=== PATIENT | female | born 1965 | race Asian ===

== ENCOUNTER 2018-07-18 14:20 | Inpatient (IN) | payer BC ==
[2018-07-18] MEDS ORDERED: POLYETHYLENE GLYCOL 3350 17 GM PKT PO PRN (17:18)
[2018-07-18] MEDS ORDERED: BISACODYL 10 MG SUPP PR PRN (17:18)
[2018-07-18] MEDS ORDERED: ACETAMINOPHEN 325 MG TAB PO PRN (17:18)
[2018-07-18] MEDS: CEPACOL LOZENGE PO PRN (20:10)
[2018-07-18] MEDS: hydrALAZINE 10 MG TAB PO SCH (20:11)
[2018-07-18] MEDS: traZODone 50 MG TAB PO SCH (21:15)
[2018-07-18] MEDS: ATORVASTATIN CALCIUM 40 MG TAB PO SCH (21:15)
[2018-07-19] MEDS: LEVOTHYROXINE 75 MCG TAB PO SCH (05:57)
[2018-07-19] MEDS: CHOLECALCIFEROL VIT D3 1,000 UNITS TAB PO SCH (08:24)
[2018-07-19] MEDS: CLOPIDOGREL BISULFATE 75 MG TAB PO SCH (08:25)
[2018-07-19] MEDS: ESCITALOPRAM OXALATE 10 MG TAB PO SCH (08:25)
[2018-07-19] MEDS: SENNOSIDES/DOCUSATE SODIUM TAB PO SCH (08:25)
[2018-07-19] MEDS: hydrALAZINE 10 MG TAB PO SCH ×3 (08:25→21:23)
[2018-07-19] MEDS: ASPIRIN EC 81 MG TAB PO SCH (08:26)
[2018-07-19] MEDS ORDERED: ENOXAPARIN 40 MG/0.4 ML SYR SC SCH (09:00)
[2018-07-19] MEDS: traZODone 50 MG TAB PO SCH (21:23)
[2018-07-19] MEDS: ATORVASTATIN CALCIUM 40 MG TAB PO SCH (21:23)
[2018-07-20] MEDS: LEVOTHYROXINE 75 MCG TAB PO SCH (05:50)
[2018-07-20] MEDS: CHOLECALCIFEROL VIT D3 1,000 UNITS TAB PO SCH (08:57)
[2018-07-20] MEDS: ESCITALOPRAM OXALATE 10 MG TAB PO SCH (08:57)
[2018-07-20] MEDS: hydrALAZINE 10 MG TAB PO SCH ×3 (08:58→21:30)
[2018-07-20] MEDS: CLOPIDOGREL BISULFATE 75 MG TAB PO SCH (08:58)
[2018-07-20] MEDS: ASPIRIN EC 81 MG TAB PO SCH (08:58)
[2018-07-20] MEDS: SENNOSIDES/DOCUSATE SODIUM TAB PO SCH (08:58)
[2018-07-20] MEDS: ATORVASTATIN CALCIUM 40 MG TAB PO SCH (21:30)
[2018-07-20] MEDS: traZODone 50 MG TAB PO SCH (22:14)
[2018-07-21] MEDS: LEVOTHYROXINE 75 MCG TAB PO SCH (05:58)
[2018-07-21] MEDS: ASPIRIN EC 81 MG TAB PO SCH (08:44)
[2018-07-21] MEDS: CLOPIDOGREL BISULFATE 75 MG TAB PO SCH (08:45)
[2018-07-21] MEDS: CHOLECALCIFEROL VIT D3 1,000 UNITS TAB PO SCH (08:45)
[2018-07-21] MEDS: hydrALAZINE 10 MG TAB PO SCH ×3 (08:45→21:52)
[2018-07-21] MEDS: ESCITALOPRAM OXALATE 10 MG TAB PO SCH (08:45)
[2018-07-21] MEDS: SENNOSIDES/DOCUSATE SODIUM TAB PO SCH (08:46)
[2018-07-21] MEDS: traZODone 50 MG TAB PO SCH (21:58)
[2018-07-21] MEDS: ATORVASTATIN CALCIUM 40 MG TAB PO SCH (21:58)
[2018-07-22] MEDS: LEVOTHYROXINE 75 MCG TAB PO SCH (05:00)
[2018-07-22] MEDS: CLOPIDOGREL BISULFATE 75 MG TAB PO SCH (09:06)
[2018-07-22] MEDS: ESCITALOPRAM OXALATE 10 MG TAB PO SCH (09:06)
[2018-07-22] MEDS: CHOLECALCIFEROL VIT D3 1,000 UNITS TAB PO SCH (09:07)
[2018-07-22] MEDS: ASPIRIN EC 81 MG TAB PO SCH (09:07)
[2018-07-22] MEDS: hydrALAZINE 10 MG TAB PO SCH ×3 (09:07→21:22)
[2018-07-22] MEDS: SENNOSIDES/DOCUSATE SODIUM TAB PO SCH (09:07)
[2018-07-22] MEDS: MELATONIN 3 MG TAB PO SCH (21:22)
[2018-07-22] MEDS: ATORVASTATIN CALCIUM 40 MG TAB PO SCH (21:22)
[2018-07-23] MEDS: LEVOTHYROXINE 75 MCG TAB PO SCH (05:55)
[2018-07-23] MEDS: CHOLECALCIFEROL VIT D3 1,000 UNITS TAB PO SCH (08:46)
[2018-07-23] MEDS: ASPIRIN EC 81 MG TAB PO SCH (08:46)
[2018-07-23] MEDS: CLOPIDOGREL BISULFATE 75 MG TAB PO SCH (08:47)
[2018-07-23] MEDS: ESCITALOPRAM OXALATE 10 MG TAB PO SCH (08:47)
[2018-07-23] MEDS: SENNOSIDES/DOCUSATE SODIUM TAB PO SCH (08:48)
[2018-07-23] MEDS: hydrALAZINE 10 MG TAB PO SCH ×3 (08:48→21:25)
[2018-07-23] MEDS: MELATONIN 3 MG TAB PO SCH (21:26)
[2018-07-23] MEDS: ATORVASTATIN CALCIUM 40 MG TAB PO SCH (21:26)
[2018-07-24] MEDS: LEVOTHYROXINE 75 MCG TAB PO SCH (06:05)
[2018-07-24] MEDS: CHOLECALCIFEROL VIT D3 1,000 UNITS TAB PO SCH (08:54)
[2018-07-24] MEDS: ASPIRIN EC 81 MG TAB PO SCH (08:54)
[2018-07-24] MEDS: ESCITALOPRAM OXALATE 10 MG TAB PO SCH (08:55)
[2018-07-24] MEDS: SENNOSIDES/DOCUSATE SODIUM TAB PO SCH (08:55)
[2018-07-24] MEDS: hydrALAZINE 10 MG TAB PO SCH ×3 (08:55→21:45)
[2018-07-24] MEDS: CLOPIDOGREL BISULFATE 75 MG TAB PO SCH (08:55)
[2018-07-24] MEDS: amLODIPine BESYLATE 5 MG TAB PO SCH (08:58)
[2018-07-24] MEDS: ATORVASTATIN CALCIUM 40 MG TAB PO SCH (21:44)
[2018-07-24] MEDS: MELATONIN 3 MG TAB PO SCH (21:45)
[2018-07-25] MEDS: LEVOTHYROXINE 75 MCG TAB PO SCH (04:57)
[2018-07-25] MEDS: ASPIRIN EC 81 MG TAB PO SCH (08:57)
[2018-07-25] MEDS: amLODIPine BESYLATE 5 MG TAB PO SCH (08:57)
[2018-07-25] MEDS: CLOPIDOGREL BISULFATE 75 MG TAB PO SCH (08:57)
[2018-07-25] MEDS: CHOLECALCIFEROL VIT D3 1,000 UNITS TAB PO SCH (08:58)
[2018-07-25] MEDS: ESCITALOPRAM OXALATE 10 MG TAB PO SCH (08:58)
[2018-07-25] MEDS: hydrALAZINE 10 MG TAB PO SCH ×3 (08:58→21:03)
[2018-07-25] MEDS: SENNOSIDES/DOCUSATE SODIUM TAB PO SCH (08:58)
[2018-07-25] MEDS: ATORVASTATIN CALCIUM 40 MG TAB PO SCH (21:03)
[2018-07-25] MEDS: MELATONIN 3 MG TAB PO SCH (21:03)
[2018-07-26] MEDS: LEVOTHYROXINE 75 MCG TAB PO SCH (05:38)
[2018-07-26] MEDS: amLODIPine BESYLATE 5 MG TAB PO SCH (08:43)
[2018-07-26] MEDS: ASPIRIN EC 81 MG TAB PO SCH (08:43)
[2018-07-26] MEDS: ESCITALOPRAM OXALATE 10 MG TAB PO SCH (08:43)
[2018-07-26] MEDS: CHOLECALCIFEROL VIT D3 1,000 UNITS TAB PO SCH (08:43)
[2018-07-26] MEDS: CLOPIDOGREL BISULFATE 75 MG TAB PO SCH (08:43)
[2018-07-26] MEDS: hydrALAZINE 10 MG TAB PO SCH ×3 (08:43→21:26)
[2018-07-26] MEDS: SENNOSIDES/DOCUSATE SODIUM TAB PO SCH (08:44)
[2018-07-26] MEDS: ATORVASTATIN CALCIUM 40 MG TAB PO SCH (21:26)
[2018-07-26] MEDS: MELATONIN 3 MG TAB PO SCH (21:26)
[2018-07-27] MEDS: LEVOTHYROXINE 75 MCG TAB PO SCH (05:25)
[2018-07-27] MEDS: CLOPIDOGREL BISULFATE 75 MG TAB PO SCH (09:00)
[2018-07-27] MEDS: amLODIPine BESYLATE 5 MG TAB PO SCH (09:00)
[2018-07-27] MEDS: CHOLECALCIFEROL VIT D3 1,000 UNITS TAB PO SCH (09:00)
[2018-07-27] MEDS: ASPIRIN EC 81 MG TAB PO SCH (09:00)
[2018-07-27] MEDS: ESCITALOPRAM OXALATE 10 MG TAB PO SCH (09:01)
[2018-07-27] MEDS: SENNOSIDES/DOCUSATE SODIUM TAB PO SCH (09:01)
[2018-07-27] MEDS: hydrALAZINE 10 MG TAB PO SCH ×3 (09:01→21:53)
[2018-07-27] MEDS: MELATONIN 3 MG TAB PO SCH (21:53)
[2018-07-27] MEDS: ATORVASTATIN CALCIUM 40 MG TAB PO SCH (21:53)
[2018-07-28] MEDS: LEVOTHYROXINE 75 MCG TAB PO SCH (05:37)
[2018-07-28] MEDS: hydrALAZINE 10 MG TAB PO SCH ×3 (08:20→21:01)
[2018-07-28] MEDS: CLOPIDOGREL BISULFATE 75 MG TAB PO SCH (08:20)
[2018-07-28] MEDS: CHOLECALCIFEROL VIT D3 1,000 UNITS TAB PO SCH (08:20)
[2018-07-28] MEDS: ESCITALOPRAM OXALATE 10 MG TAB PO SCH (08:20)
[2018-07-28] MEDS: ASPIRIN EC 81 MG TAB PO SCH (08:20)
[2018-07-28] MEDS: amLODIPine BESYLATE 5 MG TAB PO SCH (08:20)
[2018-07-28] MEDS: SENNOSIDES/DOCUSATE SODIUM TAB PO SCH (08:20)
[2018-07-28] MEDS: ATORVASTATIN CALCIUM 40 MG TAB PO SCH (21:00)
[2018-07-28] MEDS: MELATONIN 3 MG TAB PO SCH (21:01)
[2018-07-29] MEDS: LEVOTHYROXINE 75 MCG TAB PO SCH (06:13)
[2018-07-29] MEDS: SENNOSIDES/DOCUSATE SODIUM TAB PO SCH (08:17)
[2018-07-29] MEDS: ASPIRIN EC 81 MG TAB PO SCH (08:17)
[2018-07-29] MEDS: hydrALAZINE 10 MG TAB PO SCH ×3 (08:17→21:32)
[2018-07-29] MEDS: CHOLECALCIFEROL VIT D3 1,000 UNITS TAB PO SCH (08:17)
[2018-07-29] MEDS: amLODIPine BESYLATE 5 MG TAB PO SCH (08:17)
[2018-07-29] MEDS: CLOPIDOGREL BISULFATE 75 MG TAB PO SCH (08:18)
[2018-07-29] MEDS: ESCITALOPRAM OXALATE 10 MG TAB PO SCH (08:18)
[2018-07-29] MEDS: MELATONIN 3 MG TAB PO SCH (21:32)
[2018-07-29] MEDS: ATORVASTATIN CALCIUM 40 MG TAB PO SCH (21:32)
[2018-07-30] MEDS: LEVOTHYROXINE 75 MCG TAB PO SCH (06:17)
[2018-07-30] MEDS: CEPACOL LOZENGE PO PRN (06:24)
[2018-07-30] MEDS: hydrALAZINE 10 MG TAB PO SCH ×3 (08:33→21:35)
[2018-07-30] MEDS: SENNOSIDES/DOCUSATE SODIUM TAB PO SCH (08:33)
[2018-07-30] MEDS: ESCITALOPRAM OXALATE 10 MG TAB PO SCH (08:34)
[2018-07-30] MEDS: amLODIPine BESYLATE 5 MG TAB PO SCH (08:34)
[2018-07-30] MEDS: CLOPIDOGREL BISULFATE 75 MG TAB PO SCH (08:34)
[2018-07-30] MEDS: CHOLECALCIFEROL VIT D3 1,000 UNITS TAB PO SCH (08:34)
[2018-07-30] MEDS: ASPIRIN EC 81 MG TAB PO SCH (08:34)
[2018-07-30] MEDS: MELATONIN 3 MG TAB PO SCH (21:35)
[2018-07-30] MEDS: ATORVASTATIN CALCIUM 40 MG TAB PO SCH (21:35)
[2018-07-31] MEDS: LEVOTHYROXINE 75 MCG TAB PO SCH (06:07)
[2018-07-31] MEDS: ASPIRIN EC 81 MG TAB PO SCH (07:45)
[2018-07-31] MEDS: amLODIPine BESYLATE 5 MG TAB PO SCH (07:45)
[2018-07-31] MEDS: SENNOSIDES/DOCUSATE SODIUM TAB PO SCH (07:46)
[2018-07-31] MEDS: CHOLECALCIFEROL VIT D3 1,000 UNITS TAB PO SCH (07:46)
[2018-07-31] MEDS: CLOPIDOGREL BISULFATE 75 MG TAB PO SCH (07:46)
[2018-07-31] MEDS: ESCITALOPRAM OXALATE 10 MG TAB PO SCH (07:46)
[2018-07-31] MEDS: hydrALAZINE 10 MG TAB PO SCH ×3 (07:46→22:27)
[2018-07-31] MEDS: MELATONIN 3 MG TAB PO SCH (22:28)
[2018-07-31] MEDS: ATORVASTATIN CALCIUM 40 MG TAB PO SCH (22:28)
[2018-08-01] MEDS: LEVOTHYROXINE 75 MCG TAB PO SCH (05:33)
[2018-08-01] MEDS: CHOLECALCIFEROL VIT D3 1,000 UNITS TAB PO SCH (09:07)
[2018-08-01] MEDS: CLOPIDOGREL BISULFATE 75 MG TAB PO SCH (09:07)
[2018-08-01] MEDS: amLODIPine BESYLATE 5 MG TAB PO SCH (09:07)
[2018-08-01] MEDS: ASPIRIN EC 81 MG TAB PO SCH (09:07)
[2018-08-01] MEDS: SENNOSIDES/DOCUSATE SODIUM TAB PO SCH (09:07)
[2018-08-01] MEDS: ESCITALOPRAM OXALATE 10 MG TAB PO SCH (09:07)
[2018-08-01] MEDS: hydrALAZINE 10 MG TAB PO SCH ×3 (09:08→21:07)
[2018-08-01] MEDS: ATORVASTATIN CALCIUM 40 MG TAB PO SCH (21:07)
[2018-08-01] MEDS: MELATONIN 3 MG TAB PO SCH (22:50)
[2018-08-02] MEDS: LEVOTHYROXINE 75 MCG TAB PO SCH (06:00)
[2018-08-02] MEDS: CEPACOL LOZENGE PO PRN (06:00)
[2018-08-02] MEDS: amLODIPine BESYLATE 5 MG TAB PO SCH (08:29)
[2018-08-02] MEDS: ASPIRIN EC 81 MG TAB PO SCH (08:29)
[2018-08-02] MEDS: CLOPIDOGREL BISULFATE 75 MG TAB PO SCH (08:29)
[2018-08-02] MEDS: ESCITALOPRAM OXALATE 10 MG TAB PO SCH (08:30)
[2018-08-02] MEDS: hydrALAZINE 10 MG TAB PO SCH ×3 (08:30→21:54)
[2018-08-02] MEDS: CHOLECALCIFEROL VIT D3 1,000 UNITS TAB PO SCH (08:30)
[2018-08-02] MEDS: SENNOSIDES/DOCUSATE SODIUM TAB PO SCH (08:30)
[2018-08-02] MEDS: ATORVASTATIN CALCIUM 40 MG TAB PO SCH (21:54)
[2018-08-02] MEDS: MELATONIN 3 MG TAB PO SCH (21:54)
[2018-08-03] MEDS: LEVOTHYROXINE 75 MCG TAB PO SCH (05:34)
[2018-08-03] MEDS: hydrALAZINE 10 MG TAB PO SCH ×3 (08:45→22:04)
[2018-08-03] MEDS: CLOPIDOGREL BISULFATE 75 MG TAB PO SCH (08:45)
[2018-08-03] MEDS: ESCITALOPRAM OXALATE 10 MG TAB PO SCH (08:45)
[2018-08-03] MEDS: SENNOSIDES/DOCUSATE SODIUM TAB PO SCH (08:45)
[2018-08-03] MEDS: CHOLECALCIFEROL VIT D3 1,000 UNITS TAB PO SCH (08:45)
[2018-08-03] MEDS: ASPIRIN EC 81 MG TAB PO SCH (08:45)
[2018-08-03] MEDS: amLODIPine BESYLATE 5 MG TAB PO SCH (08:45)
[2018-08-03] MEDS: ATORVASTATIN CALCIUM 40 MG TAB PO SCH (22:03)
[2018-08-03] MEDS: MELATONIN 3 MG TAB PO SCH (22:05)
[2018-08-04] MEDS: LEVOTHYROXINE 75 MCG TAB PO SCH (05:14)
[2018-08-04] MEDS: SENNOSIDES/DOCUSATE SODIUM TAB PO SCH (07:54)
[2018-08-04] MEDS: amLODIPine BESYLATE 5 MG TAB PO SCH (07:54)
[2018-08-04] MEDS: ASPIRIN EC 81 MG TAB PO SCH (07:54)
[2018-08-04] MEDS: hydrALAZINE 10 MG TAB PO SCH ×3 (07:55→21:43)
[2018-08-04] MEDS: ESCITALOPRAM OXALATE 10 MG TAB PO SCH (07:55)
[2018-08-04] MEDS: CHOLECALCIFEROL VIT D3 1,000 UNITS TAB PO SCH (07:55)
[2018-08-04] MEDS: CLOPIDOGREL BISULFATE 75 MG TAB PO SCH (07:55)
[2018-08-04] MEDS: MELATONIN 3 MG TAB PO SCH (21:43)
[2018-08-04] MEDS: ATORVASTATIN CALCIUM 40 MG TAB PO SCH (21:43)
[2018-08-05] MEDS: LEVOTHYROXINE 75 MCG TAB PO SCH (05:52)
[2018-08-05] MEDS: SENNOSIDES/DOCUSATE SODIUM TAB PO SCH (09:45)
[2018-08-05] MEDS: ESCITALOPRAM OXALATE 10 MG TAB PO SCH (09:45)
[2018-08-05] MEDS: CLOPIDOGREL BISULFATE 75 MG TAB PO SCH (09:45)
[2018-08-05] MEDS: amLODIPine BESYLATE 5 MG TAB PO SCH (09:45)
[2018-08-05] MEDS: hydrALAZINE 10 MG TAB PO SCH ×3 (09:46→21:55)
[2018-08-05] MEDS: CHOLECALCIFEROL VIT D3 1,000 UNITS TAB PO SCH (09:46)
[2018-08-05] MEDS: ASPIRIN EC 81 MG TAB PO SCH (09:47)
[2018-08-05] MEDS: ATORVASTATIN CALCIUM 40 MG TAB PO SCH (21:55)
[2018-08-05] MEDS: MELATONIN 3 MG TAB PO SCH (21:55)
[2018-08-06] MEDS: LEVOTHYROXINE 75 MCG TAB PO SCH (06:02)
[2018-08-06] MEDS: CLOPIDOGREL BISULFATE 75 MG TAB PO SCH (09:01)
[2018-08-06] MEDS: ESCITALOPRAM OXALATE 10 MG TAB PO SCH (09:01)
[2018-08-06] MEDS: hydrALAZINE 10 MG TAB PO SCH ×3 (09:02→22:06)
[2018-08-06] MEDS: ASPIRIN EC 81 MG TAB PO SCH (09:02)
[2018-08-06] MEDS: SENNOSIDES/DOCUSATE SODIUM TAB PO SCH (09:02)
[2018-08-06] MEDS: amLODIPine BESYLATE 5 MG TAB PO SCH (09:03)
[2018-08-06] MEDS: CHOLECALCIFEROL VIT D3 1,000 UNITS TAB PO SCH (09:03)
[2018-08-06] MEDS: MELATONIN 3 MG TAB PO SCH (22:06)
[2018-08-06] MEDS: ATORVASTATIN CALCIUM 40 MG TAB PO SCH (22:07)
[2018-08-07] MEDS: LEVOTHYROXINE 75 MCG TAB PO SCH (05:48)
[2018-08-07] MEDS: amLODIPine BESYLATE 5 MG TAB PO SCH (08:02)
[2018-08-07] MEDS: ESCITALOPRAM OXALATE 10 MG TAB PO SCH (08:03)
[2018-08-07] MEDS: ASPIRIN EC 81 MG TAB PO SCH (08:04)
[2018-08-07] MEDS: hydrALAZINE 10 MG TAB PO SCH ×3 (08:04→21:37)
[2018-08-07] MEDS: CHOLECALCIFEROL VIT D3 1,000 UNITS TAB PO SCH (08:04)
[2018-08-07] MEDS: CLOPIDOGREL BISULFATE 75 MG TAB PO SCH (08:04)
[2018-08-07] MEDS: SENNOSIDES/DOCUSATE SODIUM TAB PO SCH (08:04)
[2018-08-07] MEDS: ATORVASTATIN CALCIUM 40 MG TAB PO SCH (21:36)
[2018-08-07] MEDS: MELATONIN 3 MG TAB PO SCH (21:37)
[2018-08-08] MEDS: LEVOTHYROXINE 75 MCG TAB PO SCH (05:44)
[2018-08-08] MEDS: hydrALAZINE 10 MG TAB PO SCH (08:53)
[2018-08-08] MEDS: CLOPIDOGREL BISULFATE 75 MG TAB PO SCH (08:53)
[2018-08-08] MEDS: amLODIPine BESYLATE 5 MG TAB PO SCH (08:53)
[2018-08-08] MEDS: CHOLECALCIFEROL VIT D3 1,000 UNITS TAB PO SCH (08:53)
[2018-08-08] MEDS: ASPIRIN EC 81 MG TAB PO SCH (08:53)
[2018-08-08] MEDS: ESCITALOPRAM OXALATE 10 MG TAB PO SCH (08:54)
[2018-08-08] MEDS: SENNOSIDES/DOCUSATE SODIUM TAB PO SCH (08:54)
[2018-08-08] MEDS ORDERED: amLODIPine BESYLATE 5 MG TAB PO SCH (10:58)
[2018-08-08] MEDS: MELATONIN 3 MG TAB PO SCH (21:45)
[2018-08-08] MEDS: ATORVASTATIN CALCIUM 40 MG TAB PO SCH (21:45)
[2018-08-09] MEDS: LEVOTHYROXINE 75 MCG TAB PO SCH (05:50)
[2018-08-09] MEDS: ASPIRIN EC 81 MG TAB PO SCH (09:02)
[2018-08-09] MEDS: CHOLECALCIFEROL VIT D3 1,000 UNITS TAB PO SCH (09:03)
[2018-08-09] MEDS: ESCITALOPRAM OXALATE 10 MG TAB PO SCH (09:03)
[2018-08-09] MEDS: SENNOSIDES/DOCUSATE SODIUM TAB PO SCH (09:03)
[2018-08-09] MEDS: CLOPIDOGREL BISULFATE 75 MG TAB PO SCH (09:03)
== END 2018-08-09 11:51 | disposition home health service (06) | DRG 57 ==
DX: I69.354 Hemiplegia and hemiparesis following cerebral infarction affecting left non-dominant side (principal); I69.322 Dysarthria following cerebral infarction; I10 Essential (primary) hypertension; E03.9 Hypothyroidism, unspecified; Z91.81 History of falling